=== PATIENT | male | born 1975 | race Caucasian/White ===

== ENCOUNTER 2023-07-01 18:23 | Emergency (ER) | payer SELFPAY ==
[~2023-07-01] VITALS: Ht 165.1 cm; Wt 77.1 kg
[2023-07-01 18:25] VITALS: BP 148/90; PULSE 90; RESP 16; TEMP 97.5; O2SAT 96
== END 2023-07-01 18:40 | disposition left against medical advice (07) ==
LOC: MED 18:23
DX: F11.10 Opioid abuse, uncomplicated (principal); T40.2X1A Poisoning by other opioids, accidental (unintentional), initial encounter; Z79.899 Other long term (current) drug therapy; Y92.89 Other specified places as the place of occurrence of the external cause
CPT/HCPCS: 99283